=== PATIENT | female | born 1960 | race American Indian/Alaskan Native ===

== ENCOUNTER 2019-07-30 12:44 | Emergency (ER) | payer OTHER, BC ==
[~2019-07-30] VITALS: Ht 154.9 cm; Wt 68.0 kg
== END 2019-07-30 13:39 | disposition home or self-care (01) ==
LOC: ED 12:44
DX: S53.401A Unspecified sprain of right elbow, initial encounter (principal); W22.8XXA Striking against or struck by other objects, initial encounter
CPT/HCPCS: 73080; 99283

== ENCOUNTER 2019-08-08 10:46 | Emergency (ER) | payer OTHER, BC ==
[~2019-08-08] VITALS: Ht 154.9 cm; Wt 68.0 kg
--- OUTSIDE RECORDS SUMMARY | 2019-08-08 10:48 | XMS ---
PreManage Notification: JOHN GONZALEZ Security Research Spec Events No recent Security Events currently on file CRITERIA MET - [facility] - 2 Visits in 30 Days CARE PROVIDERS There are no care providers on record at this time. Beth has no Care Guidelines for this patient. Elvi VISIT COUNT (12 MO.) [address] [facility] TOTAL 2 NOTE: Visits indicate total known visits. ED/C VISIT TRACKING (12 MO.) 08/08/2019 10:46 [facility] TYPE: Emergency COMPLAINT: - RIGHT ARM PAIN 07/30/2019 12:[address] [facility] [place] TYPE: Emergency COMPLAINT: - ELBOW INJ DIAGNOSES: - Pain in right elbow - Striking against or struck by other objects, initial encounter - Unspecified sprain of right elbow, initial encounter INPATIENT VISIT TRACKING (12 MO.) No inpatient visits to display in this time frame [email or web address]
== END 2019-08-08 12:11 | disposition home or self-care (01) ==
LOC: ED 10:46
DX: S53.401A Unspecified sprain of right elbow, initial encounter (principal); X50.1XXA Overexertion from prolonged static or awkward postures, initial encounter
CPT/HCPCS: 99283

== ENCOUNTER 2020-06-01 | Emergency (ER) | payer OTHER ==
[~2020-06-01] VITALS: Ht 154.9 cm; Wt 71.7 kg
--- OUTSIDE RECORDS SUMMARY | 2020-06-01 00:04 | XMS ---
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 Care History Medical/Surgical 08/12/2019 [facility] \T\middot;\T\nbsp; PATIENT IS A [employer] MEMBER. \T\middot;\T\nbsp; PLEASE REFER PATIENT TO [facility] FOR NON EMERGENT MEDICAL NEEDS. \T\middot;\ T\nbsp; [facility] CAN SEE PATIENTS SAME DAY FOR APTS IF PATIENT CALLS FIRST THING IN THE MORNING. E.D. VISIT COUNT (12 MO.) 3 [facility] TOTAL 3 NOTE: Visits indicate total known visits. ED/UCC VISIT TRACKING (12 MO.) 06/01/2020 00:01 [facility] TYPE: Emergency COMPLAINT: - PAIN COLLARBONE 08/08/2019 10:46 [facility] TYPE: Emergency COMPLAINT: - RIGHT ARM PAIN DIAGNOSES: - Overexertion from prolonged static or awkward postures, initi - Pain in right elbow - Unspecified sprain of right elbow, initial encounter 07/30/2019 12:45 [facility] TYPE: Emergency COMPLAINT: - ELBOW INJ DIAGNOSES: - Pain in right elbow - Striking against or struck by other objects, initial encounte - Unspecified sprain of right elbow, initial encounter INPATIENT VISIT TRACKING (12 MO.) No inpatient visits to display in this time frame [email or web address]
[2020-06-01] MEDS ORDERED: DICLOFENAC SODI75 MG PO (01:52)
== END 2020-06-01 02:04 | disposition home or self-care (01) ==
LOC: ED
DX: S46.812A Strain of other muscles, fascia and tendons at shoulder and upper arm level, left arm, initial encounter (principal); X58.XXXA Exposure to other specified factors, initial encounter
CPT/HCPCS: 73000; 99283-25